=== PATIENT | male | born 2005 | race Two or more races ===

== ENCOUNTER 2025-04-03 12:28 | Emergency (ER) | payer OTHER, SELFPAY ==
--- NOTE | ~2025-04-03 | XR_ITS ---
CLINICAL HISTORY: pain, injury 3 views right hand Comparison: None Findings: There is a comminuted crush fracture of the terminal tuft of the distal phalanx of the ring finger with displaced fragments Inter phalangeal joints are normal. No erosions No radiopaque foreign body Impression: Comminuted crush fracture of the terminal tuft of the distal phalanx of the ring finger. This document has been electronically signed by: Fabio Pro MD on 04/03/2025 13:42:04
[2025-04-03 12:40] VITALS: BP 133/80; PULSE 99; RESP 14; TEMP 37.4; O2SAT 95; BMI 25.0
--- NOTE | 2025-04-03 12:40 | ED_ITS ---
HPI - General Adult General Chief complaint: Wound/Laceration Stated complaint: r ring finger injury Time Seen by Provider: 04/03/25 14:40 History of Present Illness ED Provider: Stanley Leach HPI narrative: 19 yold male presents to the ED for right finger injury patient states he accidently closed the window on his finger. Patient unknown when last tdap shot. Patient denies any numbness in finger. patietn states no other compalints. Related Data Previous Rx's ?Medication ?Instructions ?Recorded amoxicillin 875 mg-potassium 1 tab PO Q12H 10 days #19 tabs 04/03/25 clavulanate 125 mg tablet naproxen 500 mg tablet 500 mg PO BID PRN pain #14 t abs 04/03/25 Allergies Allergy/AdvReac Type Severity Reaction Status Date / Time No Known Allergies Allergy Verified 04/03/25 12:45 Review of Systems 2 Review of Systems: Finger injury Yes all other systems are reviewed and are negative PMFSH Social History Social History Smoked in Last 30 Days: No Use of substances other than those prescribed or required for medical reasons: No Advance Directives: No Advance Directives Information Provided: No Do you have a plan to hurt others: No Plan Physical Exam ED Vital Signs: Vital Signs - 24 hr 04/03/25 12:40 04/03/25 16:05 Temperature 99.4 F 98.6 F Pulse Rate 99 71 Respiratory Rate 14 16 Blood Pressure 133/80 122/81 Pulse Oximetry 95 96 Oxygen Delivery Method Room Air Room Air BMI result Body Mass Index 25.0 Const General: cooperative, healthy appearing, comfortable, no acute distress, well developed, alert, awake and Physically active Orientation/consciousness: patient oriented x3 HENMT Head: Yes normal to inspection, Yes No palpable skull fracture present, Yes normocephalic and Yes atraumatic Eyes General: appearance normal, both eyes and all related structures Neck Neck: Yes normal visual inspection, Yes full ROM, Yes no lymphadenopathy, Yes no meningeal signs, Yes trachea midline, Yes supple, No anterior neck swelling and No tender Chest Chest palpation & inspection: normal inspection of the chest and normal palpation of entire chest wall Resp Effort & Inspection: normal respiratory effort and able to speak in complete sentences Auscultation: clear to auscultation bilaterally Cardio Jugular venous distension: no JVD Heart sounds: S1 normal heart sound present and S2 normal heart sound present GI Inspection: Yes normal to inspection Palpation (GI): Soft to palpation, not firm, nontender, no guarding and not rigid General: Yes no CVA tenderness Back/Spine/Pelvis Back: no CVA tenderness and No back tenderness Skin General skin exam: no rashes or lesions noted, elasticity normal and turgor normal Neuro General: patient oriented x3, gait normal, tone normal, moves all extremities, Normal light touch and pain sensation, no meningeal signs, no focal motor deficits, CN's II-XI intact bilaterally and normal sensation to monofilament Extrem General: Yes normal to inspection, Yes full ROM and Yes capillary refill normal Hand/finger images: 2 1. Positive for crush injury blood under the nail bed. Vascular neuro exam intact. Motor exam intact but limited due to pain. Negative for active profuse bleeding. Psych Appearance: grossly normal, well kempt and not disheveled Course Course Course Narrative: Rapid medical examination performed in triage by Kristin Purvis PA-C. Patient is a 19 year old assigned male at presenting to the emergency department with a right middle finger injury after slamming his window down and getting it caught underneath. Detailed physical exam and review of systems are deferred to the commissioned security officer. Imaging ordered. Patient placed back in the waiting room pending room availability and results. Boostrix ordered. Medications Administered Discontinued Medications Generic Name Dose Route Start Last Admin Trade Name Freq PRN Reason Stop Dose Admin Amoxicillin/Clavulanate Potassium 875 mg 04/03/25 14:49 04/03/25 15:08 Amoxicillin/Potassium Clav 875 Mg Tablet PO 04/03/25 14:50 875 mg ONCE ONE Administration Diphtheria/Tetanus/Acell Pertussis 0.5 ml 04/03/25 12:41 04/03/25 14:26 Diphth,Pertus(Acell),Tet Adult 0.5 Ml Syringe IM 04/03/25 12:42 0.5 ml .ONCE ONE Administration Medical Decision Making Medical Decision Making [facility] Narrative: 19-year-old male presents to ED from injury from window. X-ray shows comminuted tuft fracture. Wound cleaned sterile saline and Betadine iodine. Due to crush injury no laceration repair indicated. Patient is placed in a nonstick with gauze and in finger splint. Patient informed not remove splint keep it dry informed to follow up with orthopedic clinic. Differential Diagnosis Differential Diagnoses: The differential diagnosis associated with the presentation includes (Crush injury) Admission/Observation Consideration of admission/observation: Escalation of care including admission/observation considered Independent Interpretation I performed an independent interpretation of an: Plain X-Ray Radiology Impression Discussion of test interpretation with radiology: I have reviewed the radiologist's reading. Independent Historian Clinical information obtained from an independent historian. History obtained from or confirmed by: Other (Patient) Prescription Management I considered prescription management with: Pain Medication and Antibiotic Discharge Plan Discharge Clinical Impression: Closed fracture of tuft of distal phalanx of finger Patient Disposition: Home, Self-Care Instructions: Finger Fracture (ED) Additional Instructions: Recommend follow-up with orthopedic surgeon. Return to the ED for profuse swelling, redness, pus discharge, foul odor, fever, or chills. Recommend no activities with right hand in regards to [employer]. Ordering Physician: Kristin Purvis Date of Service: 04/03/25 Procedure(s): XR hand RT min 3V Accession Number(s): [id number] cc: Kristin Purvis; Physician,None ~ Reason for Exam: pain, injury CLINICAL HISTORY: pain, injury 3 views right hand Comparison: None Findings: There is a comminuted crush fracture of the terminal tuft of the distal phalanx of the ring finger with displaced fragments Inter phalangeal joints are normal. No erosions No radiopaque foreign body Impression: Comminuted crush fracture of the terminal tuft of the distal phalanx of the ring finger. This document has been electronically signed by: Fabio Pro MD on 04/03/2025 13:42:04 Prescriptions: New amoxicillin-pot clavulanate 875-125 mg tablet 1 tab PO Q12H 10 Days Qty: 19 0RF naproxen 500 mg tablet 500 mg PO BID PRN (Reason: pain) Qty: 14 0RF Referrals: [facility] [place] [facility]geons [Provider Group, Hand Surgery] - 2 days Referral Note: Tuft fracture Clinical Impression: Closed fracture of tuft of distal phalanx of finger Stand Alone Forms: Work/School Release Interventions: ED Discharge Assessment Last Done: 04/03/25 17:38 Discharge Date/Time: 04/03/25 17:38 Print Language: Belgian
[2025-04-03] MEDS: Diphth,Pertus(ACell),Tet Adult 0.5 ML SYRINGE IM (14:26)
--- OUTSIDE RECORDS SUMMARY | 2025-04-03 14:46 | XMS_ITS ---
Author Name [facility] Organization Unknown Care Team Organization Name Specialty Phone Email Start Date End Da te [facility] N/A Senior Net Architect N/A N/A 10/26/2024 [facility]ANNON [facility] [id number]
[2025-04-03 16:05] VITALS: BP 122/81; PULSE 71; RESP 16; TEMP 37; O2SAT 96
[2025-04-03 17:38] VITALS: BP 122/81; PULSE 71; RESP 16; TEMP 37; O2SAT 96
== END 2025-04-03 17:38 | disposition home or self-care (01) ==
PROVIDERS: Emergency Provider Emergency Medicine
DX: S62.634A Displaced fracture of distal phalanx of right ring finger, initial encounter for closed fracture (principal); W23.2XXA Caught, crushed, jammed or pinched between a moving and stationary object, initial encounter; Y93.9 Activity, unspecified; Y92.9 Unspecified place or not applicable; Y99.9 Unspecified external cause status; M79.641 Pain in right hand; Z23 Encounter for immunization
CPT/HCPCS: 73130; 90471; 90715; 99284

== ENCOUNTER → 2025-04-03 12:41 | Outpatient (BNV) | payer OTHER, SELFPAY | PROVIDERS: Visit Provider Radiology Diagnostic Radiology | DX: S62.634A Displaced fracture of distal phalanx of right ring finger, initial encounter for closed fracture (principal) | CPT/HCPCS: 73130 ==